=== PATIENT | male | born 1945 | race Caucasian/White ===

== ENCOUNTER → 2017-10-22 | Outpatient (CLI) | payer OTHER | LOC: RAD 13:39 | DX: N63.20 Unspecified lump in the left breast, unspecified quadrant (principal); R92.8 Other abnormal and inconclusive findings on diagnostic imaging of breast ==

== ENCOUNTER → 2018-04-29 | Outpatient (CLI) | payer OTHER | LOC: RAD 10:18 | DX: R05 Cough (principal) ==

== ENCOUNTER → 2018-10-15 | Outpatient (CLI) | payer OTHER ==
[~2018-10-15] VITALS: Ht 172.7 cm; Wt 95.3 kg
[~2018-10-15] MED LIST: ASPIR 8181 MG PO; FISH OIL 1,001000 M2 PO; LIPITOR80 MG PO; LOSARTAN POTASS50 MG PO; PEPCID COMPLET1 EACH PO; TOPROL XL25 MG PO
--- NOTE | 2018-10-17 13:04 | P ---
[facility] [place] [address] PROCEDURE REPORT Name: VIKRAM MOTA Susana Room #: REG [facility]#: [id number] Admission: 10/15/18 ������������������ Attend Phys: Darshan Nuñez MD Discharge: ������������������ Date of : 43 Report #: [id number] THIS REPORT FOR: //name// CC: Darshan Palm MD DATE OF SERVICE: 10/15/2018 OUTPATIENT COLONOSCOPY REPORT: BRIEF HISTORY: The patient is a 73-year-old male with a history of multiple colon polyps removed about 3 years ago for high risk screening. PREOPERATIVE DIAGNOSIS: High risk screening colonoscopy due to history of colon polyps. POSTOPERATIVE DIAGNOSES: 1. Multiple colon polyps. 2. Mild sigmoid diverticulosis coli. MEDICATIONS: Deep sedation with propofol per anesthesia. SPECIMENS: 1. Diminutive cecal polyp. 2. Polyps x 2, proximal ascending colon. 3. Sessile polyp, hepatic flexure. 4. Diminutive polyp, proximal transverse colon. 5. Diminutive polyp 40 cm. ESTIMATED BLOOD LOSS: 3 mL. PROCEDURE: Colonoscopy to cecum and terminal ileum with snare polypectomy and biopsy. FINDINGS: Prior to propofol sedation, procedure of colonoscopy discussed with the patient as well as potential risks and its complications. He indicates he understands and desires to proceed. DESCRIPTION OF PROCEDURE: With the patient in left lateral decubitus position, digital examination was completed, which revealed no abnormalities. Subsequently, the Olympus video colonoscope was introduced in the rectum, advanced under direct vision to the cecum. Done with minimal difficulty. The cecum was identified by the ileocecal valve and the appendiceal orifice. I was able to visualize the distal segment of the terminal ileum, which was inspected and noted to be unremarkable. At that point, the scope was slowly withdrawn and [facility] [address] [place] [address] PROCEDURE REPORT Name: VIKRAM MOTA Room #: REG [facility].#: [id number] Admission: 10/15/18 ������������������ Attend Phys: Darshan Nuñez MD Discharge: ������������������ Date of : 43 Report #: [id number] careful circumferential views obtained including retroflexing the scope in the ascending colon. Upon slow withdrawal of the scope, the prep was noted to be good. The mucosa was within normal limits, normal vascular pattern, normal light reflex. As we withdrew the scope, a diminutive polyp was seen and removed with biopsy forceps from the cecum. It was also noted that he had a 10 mm flat polyp at the time of his last colonoscopy. I could not find any evidence of residual polyp nor could even see the scar from the previous polypectomy. The scope was further withdrawn into the proximal ascending colon. Two polyps were seen. One was a diminutive polyp removed with cold biopsy forceps, the second was a sessile polyp about 4 mm x 7 mm, removed by cold snare polypectomy. The scope was further withdrawn and at the hepatic flexure, a 4 x 5 mm sessile polyp was seen and removed by cold snare polypectomy. In the proximal transverse colon, a diminutive polyp was seen and removed with biopsy forceps. Scope was further withdrawn. No additional abnormalities were noted until the proximal sigmoid was reached and at 40 cm, a diminutive polyp was seen and removed with cold biopsy forceps. In addition, a few medium sized diverticula were seen in the sigmoid colon without endoscopic evidence of diverticulitis. The scope was withdrawn in the rectum. Upon retroflexion, small hemorrhoids were seen. Scope was withdrawn. The patient tolerated the procedure well. CONDITION OF THE PATIENT UPON DISCHARGE: Following procedure, the patient was drowsy, arousable and conversant and will be discharged home when fully ambulatory. INSTRUCTIONS TO THE PATIENT AND FAMILY AT THE TIME OF DISCHARGE: We will follow up on the pathology of the polyp. However, due to the number of polyps, we will have him return in 3 years for followup colon exam. I suggest high fiber diet since he has some diverticular disease. Last colonoscopy was approximately 3 years ago. Withdrawal time from the cecum was 17 minutes 48 seconds. ��������������������������������������������� <ELECTRONICALLY SIGNED> ���������������������������������������� By: Darshan Nuñez MD ��������������������������������������������� 10/17/18 1304 [id number] [id number] Darshan Nuñez MD /nt
--- NOTE | 2018-10-17 13:04 | P ---
[facility] [place] [address] PROCEDURE REPORT Name: VIKRAM MOTA Susana Room #: REG [facility]#: [id number] Admission: 10/15/18 ������������������ Attend Phys: Darshan Nuñez MD Discharge: ������������������ Date of : 44 Report #: [id number] THIS REPORT FOR: //name// CC: Darshan Palm MD OUTPATIENT UPPER ENDOSCOPY REPORT BRIEF HISTORY: The patient is a 73-year-old male who has intermittent solid food dysphagia. He denies typical reflux symptoms. PREOPERATIVE DIAGNOSIS: Dysphagia. POSTOPERATIVE DIAGNOSES: 1. Distal esophagitis. 2. Esophageal stricture. 3. Gastritis with scattered erosions. 4. Patchy duodenitis. MEDICATIONS: Deep sedation with propofol per anesthesia. SPECIMEN: Biopsies of GE junction, rule out neoplasm. ESTIMATED BLOOD LOSS: 3 mL. PROCEDURE: EGD with biopsy, Orosco dilation. FINDINGS: Prior to propofol sedation, procedure of upper endoscopy discussed with the patient as well as potential risks and its complications. He indicates he understands and desire that we proceed. DESCRIPTION OF PROCEDURE: With the patient in left lateral decubitus position, the Olympus video endoscope was inserted in the cervical esophagus under direct vision without difficulty. Examination of this organ through its entire length revealed normal esophageal mucosa down the squamocolumnar junction. The squamocolumnar junction was inspected. The squamocolumnar junction was irregular. This may be simply esophagitis; however, it was somewhat irregular, ulcerated, narrowed with stricturing and irregularity and nodularity. This raises the possibility of a neoplastic process and multiple biopsies were obtained. The scope was advanced in the stomach, which was examined on end view as well as retroflexed views. There were scattered erosions in the antrum, but no ulcers or bleeding. Upon retroflexion, no definite mass lesions were seen in the cardia of the stomach. However, there was generalized thickening of the GE junction area, correlating with the above findings regarding the distal esophagus. The pylorus was unremarkable. Examination of duodenal bulb revealed patchy bulbar duodenitis with scattered erosions, but no ulcers. The duodenal [facility] [address] [place] [address] PROCEDURE REPORT Name: VIKRAM MOTA Room #: REG [facility].#: [id number] Admission: 10/15/18 ������������������ Attend Phys: Darshan Nuñez MD Discharge: ������������������ Date of : 44 Report #: [id number] sweep was unremarkable. At that point, scope was slowly withdrawn and careful circumferential views obtained. The patient tolerated the procedure well. Subsequently, he was dilated with passage of a 50-Arabic Orosco dilator. There was no resistance. CONDITION OF THE PATIENT UPON DISCHARGE: Following the procedure, the patient was drowsy and prepared for colonoscopy. INSTRUCTIONS TO THE PATIENT AND FAMILY AT THE TIME OF DISCHARGE: The findings in the distal esophagus may simply represent a poorly controlled reflux esophagitis. Due to the irregular appearance, we need to be concerned about a neoplastic process. We will follow up on biopsies. We will treat him with pantoprazole 40 mg twice daily at this point in time. We will likely have him return for followup EGD and biopsy in about 2 months or so after treatment depending on biopsy findings from today's procedure. Proceed with colonoscopy at this time. ��������������������������������������������� <ELECTRONICALLY SIGNED> ���������������������������������������� By: Darshan Nuñez MD ��������������������������������������������� 10/17/18 1304 [id number] [id number] Darshan Nuñez MD /nt
--- NOTE | 2018-10-19 12:06 | PATH ---
[facility] [place] [address] [address] PATHOLOGY RPT PROCEDURE Name: VIKRAM MOTA [facility] #[facility] [id number] ������������������ Admission: 10/15/18 ������������������ Date of : 43 Discharge: Report #: [id number] Path Case #: [id number] [facility] Accession Number: [id number] . 01 Material submitted: . PART A: BX OF GASTRITIS R/O H-PYLORI PART B: BX OF GE JUNCTION R/O NEOPLASM PART C: BX OF POLYP AT CECUM PART D: BX OF POLYP AT PROXIMAL ASCENDING COLON X2 PART E: POLYP AT HEPATIC FLEXURE PART F: BX POLYP AT PROXIMAL TRANSVERSE COLON PART G: BX POLYP AT 40CM . 01 Clinical history: . Pre-OP DX: Dysphagia, Hx polyps Post-OP DX: Gastritis, esophagitis, duodenitis, colon polyps, hiatal hernia, esophageal stricture, diverticulosis . 02 Diagnosis: A. Stomach, gastritis, rule out H. pylori, endoscopic biopsy: - Mild to moderate reactive gastropathy. - Negative for intestinal metaplasia or atrophy. - Negative for Helicobacter pylori (properly-controlled immunohistochemical stain performed). . B. Gastroesophageal mucosa, GE junction rule out neoplasm, endoscopic biopsy: - Marked active esophagitis associated with ulceration in one fragment. - Remainder squamous mucosal fragments showing features of reflux esophagitis. - Gastric fundic-type mucosa with active inflammation. - Negative for intestinal metaplasia or dysplasia. . C. Polyp, at cecum, endoscopic biopsy: - Compatible with an irritated hyperplastic polyp. - Negative for dysplasia. . D. Polyp x2, at proximal ascending colon, endoscopic biopsy: - Tubular adenoma identified in multiple fragments. - Negative for high grade dysplasia. . E. Polyp, at hepatic flexure, endoscopic biopsy: - Tubular adenoma. - Negative for high grade dysplasia. . F. Polyp, at proximal transverse colon, endoscopic biopsy: - Minute tubular adenoma. - Negative for high grade dysplasia. [facility] [address] [place] [address] PATHOLOGY RPT PROCEDURE Name: NAKULVIKRAM Room #: REG [facility].#: [id number] ������������������ Admission: 10/15/18 ������������������ Date of : 43 Discharge: Report #: [id number] Path Case #: [id number] . G. Polyp, at 40 cm, endoscopic biopsy: - Inflamed tubular adenoma. - Negative for high grade dysplasia. . (IUV:mml; 10/16/2018) QLM/10/19/2018 . 02 Comment: A well-controlled GMS fungal special stain is performed on block B1 and it shows no definite fungal elements. . (IUV:mml; 10/16/2018) . 02 Electronically signed: . Brigitte Justice MD, Pathologist NPI- [id number] . 01 Gross description: . A. Received in formalin labeled "Nakul, Vikram, BX gastritis, rule out H. pylori," are 4 segments of burr soft tissue measuring 1.3 x 0.6 x 0.2 cm in aggregate dimensions and ranging from 0.4 to 0.6 cm in maximum dimension. The specimen is submitted entirely in cassette A1. . B. Received in formalin labeled "Franson, Vikram, BX GE junction, rule out neoplasm," are multiple segments of burr soft tissue measuring 1.9 x 0.4 x 0.1 cm in aggregate dimensions. The specimen is filtered and entirely submitted in cassette B1. . C. Received in formalin labeled "Nettiensyusef, Vikram, BX polyp at cecum," is a single segment of burr soft tissue measuring 0.4 cm in maximum dimension. The specimen is entirely submitted in cassette C1. . D. Received in formalin labeled "Franson, Vikram, BX polyp at proximal ascending colon x2," are multiple segments of burr soft tissue measuring 1.9 x 0.5 x 0.1 cm in aggregate dimensions. The specimen is filtered and entirely submitted in cassette D1. . E. Received in formalin labeled "Nakul, Vikram, polyp at hepatic flexure," is a single segment of burr soft tissue measuring 0.8 cm in maximum dimension. The specimen is entirely submitted in cassette E1. . F. Received in formalin labeled "Franson, Vikram, BX polyp at proximal transverse colon," is a single segment of burr soft tissue measuring 0.5 cm in maximum dimension. The specimen is entirely submitted in cassette F1. . G. Received in formalin labeled "Nettienson, Vikram, polyp at 40 cm," are 3 [facility] [address] [place] [address] PATHOLOGY RPT PROCEDURE Name: VIKRAM MOTA Room #: [facility]#: [id number] ������������������ Admission: 10/15/18 ������������������ Date of : 43 Discharge: Report #: [id number] Path Case #: [id number] segments of burr soft tissue measuring 0.5 x 0.4 x 0.1 cm in aggregate dimensions and ranging from 0.2 to 0.4 cm in maximum dimension. The specimen is submitted entirely in cassette G1. (TSD; 10/15/2018) TOB/TOB . 02 Pathologist provided ICD-10: K31.9, K20.9, K21.0, K29.50, K63.5, D12.2, D12.3, D12.6 . 02 CPT . 166185, 732606, 504675, 639897, 351554, 170738, 499866, [id number], [id number] Specimen Comment: A courtesy copy of this report has been sent to Specimen Comment: [phone], . Specimen Comment: Report sent to / DR WOOD Performed at: [address] [facility], [place] [id number] MD Gene Negrete MD Phone: [phone] Performed at: [address] [id number] MD Brigitte Justice MD Phone: [phone]
== END | disposition home or self-care (01) ==
LOC: GI 07:31
DX: Z12.11 Encounter for screening for malignant neoplasm of colon (principal); Z86.010 Personal history of colon polyps; K57.30 Diverticulosis of large intestine without perforation or abscess without bleeding; K63.5 Polyp of colon; K64.9 Unspecified hemorrhoids; Z68.31 Body mass index [BMI] 31.0-31.9, adult; Z87.891 Personal history of nicotine dependence; I21.3 ST elevation (STEMI) myocardial infarction of unspecified site; I10 Essential (primary) hypertension; E78.00 Pure hypercholesterolemia, unspecified; K21.9 Gastro-esophageal reflux disease without esophagitis; Z95.1 Presence of aortocoronary bypass graft; Z98.890 Other specified postprocedural states; K29.70 Gastritis, unspecified, without bleeding; K22.2 Esophageal obstruction
CPT/HCPCS: 62110; 62900

== ENCOUNTER → 2019-01-08 | Outpatient (CLI) | payer OTHER ==
[~2019-01-08] VITALS: Ht 198.1 cm; Wt 86.2 kg
[~2019-01-08] MED LIST changes: +LOVAZA1000 MG PO; +PROTONIX40 M1 PO
--- NOTE | 2019-01-08 16:39 | P ---
[facility] [place] [address] PROCEDURE REPORT Name: VIKRAM MOTA Susana Room #: REG [facility]#: [id number] Admission: 01/08/19 ������������������ Attend Phys: Darshan Nuñez MD Discharge: ������������������ Date of : 44 Report #: [id number] THIS REPORT FOR: //name// CC: Darshan Palm MD DATE OF SERVICE: 01/08/2019 BRIEF HISTORY: The patient is a 73-year-old male who underwent upper endoscopy in September of this year who was found to have severe esophagitis with irregular appearing squamocolumnar junction. Biopsies were benign, but due to severe esophagitis and irregular appearance, repeat endoscopy after treatment for reflux was recommended. He has been on twice daily PPI and reports no reflux symptoms at this time. PREOPERATIVE DIAGNOSIS: Severe esophagitis for followup. POSTOPERATIVE DIAGNOSES: 1. Diffuse erythematous gastritis. 2. Normal gastroesophageal junction without evidence of esophagitis or mass lesion. MEDICATIONS: Deep sedation with propofol per anesthesia. SPECIMEN: None. ESTIMATED BLOOD LOSS: None. PROCEDURE: EGD. FINDINGS: Prior to propofol sedation, procedure of upper endoscopy discussed with the patient as well as potential risks and its complications. He indicates he understands and desires to proceed. DESCRIPTION OF PROCEDURE: With the patient in left lateral decubitus position, digital examination was completed, which revealed no abnormalities. Subsequently, the Olympus video endoscope was inserted in the cervical esophagus under direct vision without difficulty. Examination of this organ through its entire length revealed normal esophageal mucosa down the squamocolumnar junction. He has previously noted esophagitis has healed. There is no evidence of ulcers, strictures, mass lesions or hiatus hernia. Rueda mucosa was not seen. Previously reported thickened irregular areas were not seen. The esophagitis has healed completely and there was no evidence of a neoplastic process. Scope was advanced in the stomach, was examined on end view as well as retroflexed views. There was a pattern of erythema in the antrum and stomach, [facility] [address] [place] [address] PROCEDURE REPORT Name: VIKRAM MOTA Room #: REG [facility].#: [id number] Admission: 01/08/19 ������������������ Attend Phys: Darshan Nuñez MD Discharge: ������������������ Date of : 44 Report #: [id number] biopsies in September of this year were negative for H. pylori were not repeated today. Upon retroflexion, no mass lesions were seen. The pylorus, duodenal bulb and post-morning sweep were all inspected and noted to be unremarkable. The duodenal papilla was identified and noted to be unremarkable. At that point, the scope was slowly withdrawn and careful circumferential views confirmed the above findings. The patient tolerated the procedure well. CONDITION OF THE PATIENT UPON DISCHARGE: Following procedure, the patient drowsy and arousable, will be discharged home when fully ambulatory. INSTRUCTIONS TO THE PATIENT AND FAMILY AT THE TIME OF DISCHARGE: He has previously noted esophagitis has resolved completely. He had the GE junction and cardia area looked normal today. We will have him reduce his pantoprazole from twice daily to once daily. If he does well over the next month or 2, he may attempt to reduce to her lower dose. However, it is noteworthy that he had minimal symptoms of reflux disease back in September. He will return to care of Dr. Rolando Palm, return to see me as needed. ��������������������������������������������� <ELECTRONICALLY SIGNED> ���������������������������������������� By: Darshan Nuñez MD ��������������������������������������������� 01/08/19 1639 0945 1000 Darshan Nuñez MD /nt
== END | disposition home or self-care (01) ==
LOC: GI 07:46
DX: K29.70 Gastritis, unspecified, without bleeding (principal); I10 Essential (primary) hypertension; E78.5 Hyperlipidemia, unspecified; I25.2 Old myocardial infarction; Z95.1 Presence of aortocoronary bypass graft; Z98.890 Other specified postprocedural states; Z79.899 Other long term (current) drug therapy; K21.9 Gastro-esophageal reflux disease without esophagitis; Z91.041 Radiographic dye allergy status; Z88.6 Allergy status to analgesic agent; Z79.82 Long term (current) use of aspirin
CPT/HCPCS: 62110; 62900